=== PATIENT | male | born 1975 | race Caucasian/White ===

== ENCOUNTER 2020-02-29 03:32 | Inpatient (IN) ==
[2020-02-29] MEDS ORDERED: LIDOCAINE 1% 20 ML VIAL ONE (03:40)
[2020-02-29] MEDS ORDERED: MIDAZOLAM 2 MG/2 ML VIAL ONE (03:59)
[2020-02-29] MEDS ORDERED: HYDROmorphone 2 MG/1 ML VIAL ONE (03:59)
[2020-02-29] MEDS ORDERED: HEPARIN 5,000 UNIT/1 ML VIAL ONE (04:13)
[2020-02-29] MEDS ORDERED: TIROFIBAN 5,000 MCG/100 ML PREMIX IV ONE (04:20)
[2020-02-29] MEDS ORDERED: LABETALOL 20 MG/4 ML SYRINGE IV ONE (04:51)
[2020-02-29] MEDS ORDERED: MAGNESIUM SULF RIDER 4 GM in PREMIX 1 EACH IV PRN (04:52)
[2020-02-29] MEDS ORDERED: MAGNESIUM SULF RIDER 2 GM in PREMIX 1 EACH IV PRN (04:52)
[2020-02-29] MEDS ORDERED: TIROFIBAN 5,000 MCG/100 ML PREMIX IV SCH (05:00)
[2020-02-29 06:10] LABS: CKMB % 8.6 %
[2020-02-29] MEDS: carvediloL 3.125 MG TABLET PO SCH ×2 (06:10→08:31)
[2020-02-29] MEDS: ROSUVASTATIN 20 MG TABLET PO SCH ×2 (06:10→08:31)
[2020-02-29 06:11] LABS: Troponin I 12.9 NG/ML (0.00-0.045)
[2020-02-29 06:29] LABS: Basophils % 0.3 % (0.0-0.8); Eosinophils % 0.3 % (0.00-10.9); Hemoglobin 14.6 GM/DL (14.0-18.0); Immature Granulocytes % 0.4 %; Immature Granulocytes Absolute 0.04 #; Lymphocytes # 0.9 10*3/uL (1.4-4.0); Mean Corpuscular HGB Conc 33.2 GM/DL (32-36); Mean Corpuscular Volume 93.2 FL (87-102); Mean Platelet Volume 12.3 FL (9.6-12.0); Monocytes % 6.4 % (1.7-12.7); Neutrophils % 84.6 % (38.7-73.9); Platelet Count 157 T/CUMM (130-400); Red Blood Count 4.72 MC/CUMM (3.8-5.5); Red Cell Distribution Width 13.2 % (9.3-17.3); White Blood Count 10.8 T/CUMM (4-12)
[2020-02-29 06:34] LABS: Risk Ratio 5.29; VLDL CHOLESTEROL 32.8 MG/DL
[2020-02-29 07:16] LABS: Calcium 8.5 MG/DL (8.5-10.1); Osmolality,Calculated 275.7 MOS/KG (273-304)
[2020-02-29] MEDS: PRASUGREL 10 MG TABLET PO SCH (08:30)
[2020-02-29] MEDS: LOSARTAN 25 MG TABLET PO SCH ×2 (08:30→21:40)
[2020-02-29] MEDS: ASPIRIN CHEW 81 MG TABLET PO SCH (08:31)
[2020-02-29] MEDS: carvediloL 6.25 MG TABLET PO SCH ×2 (13:26→21:40)
[2020-02-29] MEDS: ENOXAPARIN 40 MG/0.4 ML SYRINGE SUBCUT SCH (13:26)
[2020-02-29 15:31] LABS: Barbiturates Screen,Urine Negative (Negative); Benzodiazepines Screen,Urine Positive (Negative); Cannabinoid Screen,Urine Positive (Negative); Opiate Screen,Urine Positive (Negative); Phencyclidine Screen,Urine Negative (Negative)
[2020-03-01 05:11] LABS: Basophils % 0.5 % (0.0-0.8); Eosinophils # 0.3 10*3/uL (0.0-0.87); Eosinophils % 3.2 % (0.00-10.9); Hematocrit 44.7 VOL% (42.0-52.0); Hemoglobin 14.8 GM/DL (14.0-18.0); Immature Granulocytes % 0.3 %; Immature Granulocytes Absolute 0.03 #; Lymphocytes # 1.3 10*3/uL (1.4-4.0); Lymphocytes % 15.3 % (21.2-54.2); Mean Corpuscular HGB Conc 33.1 GM/DL (32-36); Mean Corpuscular Volume 93.5 FL (87-102); Mean Platelet Volume 12.6 FL (9.6-12.0); Monocytes % 8.3 % (1.7-12.7); Neutrophils % 72.4 % (38.7-73.9); Platelet Count 144 T/CUMM (130-400); Red Blood Count 4.78 MC/CUMM (3.8-5.5); Red Cell Distribution Width 13.2 % (9.3-17.3); White Blood Count 8.6 T/CUMM (4-12)
[2020-03-01 05:36] LABS: Calcium 8.5 MG/DL (8.5-10.1); Osmolality,Calculated 272.7 MOS/KG (273-304)
[2020-03-01 05:37] LABS: CKMB % 7.5 %; Calcium 8.6 MG/DL (8.5-10.1); Osmolality,Calculated 274.5 MOS/KG (273-304)
[2020-03-01 05:43] LABS: Troponin I 12.2 NG/ML (0.00-0.045)
[2020-03-01] MEDS: PRASUGREL 10 MG TABLET PO SCH (08:44)
[2020-03-01] MEDS: ROSUVASTATIN 20 MG TABLET PO SCH (08:44)
[2020-03-01] MEDS: ASPIRIN CHEW 81 MG TABLET PO SCH (08:44)
[2020-03-01] MEDS: LOSARTAN 25 MG TABLET PO SCH (08:45)
[2020-03-01] MEDS: carvediloL 6.25 MG TABLET PO SCH (08:45)
[2020-03-01] MEDS ORDERED: carvediloL 12.5 MG TABLET PO SCH (09:01)
[2020-03-01] MEDS: ENOXAPARIN 40 MG/0.4 ML SYRINGE SUBCUT SCH (11:11)
== END 2020-03-01 14:40 | disposition home or self-care (01) | DRG 247 ==
LOC: N.TELES 04:04 → N.ICU 04:49
PROVIDERS: ADMIT Internal Medicine Cardiovascular Disease; ATTEND Internal Medicine Cardiovascular Disease
PROC: CLCCHCL (ICD-10-PCS; 2020-02-29 04:15)

== ENCOUNTER 2020-12-15 10:35 | Observation (INO) ==
[2020-12-15] MEDS ORDERED: ENOXAPARIN 100 MG/ML SYRINGE SUBCUT STA (11:08)
[2020-12-15] MEDS ORDERED: NITROGLYCERIN 2% OINT 1 INCH/GM PACK TOP STA (11:08)
[2020-12-15 11:17] LABS: Basophils % 0.4 % (0.0-0.8); Eosinophils # 0.3 10*3/uL (0.0-0.87); Eosinophils % 2.7 % (0.00-10.9); Hematocrit 44.8 VOL% (42.0-52.0); Hemoglobin 14.2 GM/DL (14.0-18.0); Immature Granulocytes % 0.8 %; Immature Granulocytes Absolute 0.08 #; Lymphocytes # 1.5 10*3/uL (1.4-4.0); Lymphocytes % 15.2 % (21.2-54.2); Mean Corpuscular HGB Conc 31.7 GM/DL (32-36); Mean Corpuscular Volume 95.3 FL (87-102); Mean Platelet Volume 11.6 FL (9.6-12.0); Monocytes % 10.1 % (1.7-12.7); Neutrophils % 70.8 % (38.7-73.9); Platelet Count 200 T/CUMM (130-400); Red Cell Distribution Width 14.3 % (9.3-17.3); White Blood Count 9.8 T/CUMM (4-12)
[2020-12-15 11:34] LABS: Albumin 3.6 G/DL (3.4-5.0); Bilirubin,Total 0.4 MG/DL (0.20-1.00); Calcium 8.2 MG/DL (8.5-10.1); Osmolality,Calculated 281.3 MOS/KG (273-304); Potassium 4.7 MMOL/L (3.5-5.1); Total Protein 6.9 G/DL (6.4-8.2)
[2020-12-15 12:02] LABS: Hypochromasia Slight
[2020-12-15] MEDS ORDERED: amLODIPine 5 MG TABLET PO STA (12:03)
[2020-12-15] MEDS ORDERED: ACETAMINOPHEN 325 MG TABLET PO PRN (13:08)
[2020-12-15] MEDS ORDERED: ONDANSETRON 4 MG/2 ML VIAL IV PRN (13:08)
[2020-12-15] MEDS ORDERED: ASPIRIN CHEW 81 MG TABLET PO STA (13:34)
[2020-12-15] MEDS ORDERED: POTASSIUM CHLORIDE RIDER 10 MEQ/100 ML PREMIX IV PRN (13:35)
[2020-12-15] MEDS ORDERED: MAGNESIUM SULF RIDER 2 GM/50 ML PREMIX IV PRN (13:35)
[2020-12-15] MEDS ORDERED: SODIUM CHLORIDE 0.9% 1,000 ML IV SCH (13:35)
[2020-12-15] MEDS ORDERED: diphenhydrAMINE CAP 25 MG CAPSULE PO ONE (13:35)
[2020-12-15] MEDS ORDERED: DIAZEPAM 5 MG TABLET PO ONE (13:35)
[2020-12-15] MEDS ORDERED: LIDOCAINE 1% 20 ML VIAL ONE (13:40)
[2020-12-15] MEDS ORDERED: MIDAZOLAM 2 MG/2 ML VIAL ONE (13:40)
[2020-12-15] MEDS ORDERED: fentaNYL 100 MCG/2 ML VIAL ONE (13:40)
[2020-12-15] MEDS ORDERED: HEPARIN 5,000 UNIT/1 ML VIAL ONE ×2 (14:38→15:08)
[2020-12-15] MEDS ORDERED: TIROFIBAN 5,000 MCG/100 ML PREMIX IV ONE (14:39)
[2020-12-15] MEDS ORDERED: TICAGRELOR 90 MG TABLET ONE (15:25)
[2020-12-15 18:37] LABS: Barbiturates Screen,Urine Negative (Negative); Benzodiazepines Screen,Urine Positive (Negative); Cannabinoid Screen,Urine Negative (Negative); Opiate Screen,Urine Negative (Negative); Phencyclidine Screen,Urine Negative (Negative)
[2020-12-15] MEDS: LOSARTAN 50 MG TABLET PO SCH (21:16)
[2020-12-15] MEDS: carvediloL 12.5 MG TABLET PO SCH (21:16)
[2020-12-15] MEDS: MORPHINE 2 MG/1 ML SYRINGE IV PRN (22:03)
[2020-12-15] MEDS ORDERED: ALUM/MAG/SIMETH/LIDO VISC 1:1 30 ML BOTTLE PO ONE (22:23)
[2020-12-16 06:03] LABS: Basophils % 0.4 % (0.0-0.8); Eosinophils # 0.2 10*3/uL (0.0-0.87); Hematocrit 41.5 VOL% (42.0-52.0); Hemoglobin 13.3 GM/DL (14.0-18.0); Immature Granulocytes % 0.7 %; Immature Granulocytes Absolute 0.06 #; Lymphocytes # 1.3 10*3/uL (1.4-4.0); Lymphocytes % 15.3 % (21.2-54.2); Mean Corpuscular Volume 94.3 FL (87-102); Mean Platelet Volume 12.1 FL (9.6-12.0); Neutrophils % 70.6 % (38.7-73.9); Platelet Count 168 T/CUMM (130-400); Red Cell Distribution Width 14.2 % (9.3-17.3); White Blood Count 8.5 T/CUMM (4-12)
[2020-12-16] MEDS: MORPHINE 2 MG/1 ML SYRINGE IV PRN (06:10)
[2020-12-16 06:16] LABS: Calcium 8.2 MG/DL (8.5-10.1); Osmolality,Calculated 268.1 MOS/KG (273-304); Potassium 3.9 MMOL/L (3.5-5.1); Risk Ratio 5.44; VLDL Cholesterol 105.6 MG/DL
[2020-12-16] MEDS: carvediloL 12.5 MG TABLET PO SCH (08:51)
[2020-12-16] MEDS: LOSARTAN 50 MG TABLET PO SCH (08:51)
[2020-12-16] MEDS ORDERED: amLODIPine 5 MG TABLET PO SCH (09:00)
[2020-12-16] MEDS ORDERED: ROSUVASTATIN 20 MG TABLET PO SCH (09:00)
[2020-12-16] MEDS ORDERED: CLOPIDOGREL 75 MG TABLET PO SCH (09:00)
[2020-12-16] MEDS ORDERED: ASPIRIN CHEW 81 MG TABLET PO SCH (09:00)
[2020-12-16] MEDS ORDERED: PANTOPRAZOLE 40 MG TABLET PO SCH (09:00)
[2020-12-16 13:12] VITALS: BP 104/71
[2020-12-16] MEDS: GABAPENTIN 100 MG CAPSULE PO SCH ×2 (14:47→15:53)
[2020-12-17] MEDS ORDERED: ROSUVASTATIN 20 MG TABLET PO SCH ×2 (09:00→21:00)
[2020-12-17] MEDS ORDERED: FENOFIBRATE 145 MG TABLET PO SCH (09:00)
== END 2020-12-16 15:30 | disposition home or self-care (01) ==
LOC: N.EDINP 10:35 → N.ED 10:35 → N.EDINP 15:48 → N.TELES 16:07
PROVIDERS: ADMIT Internal Medicine Cardiovascular Disease; ATTEND Internal Medicine Cardiovascular Disease
PROC: CLCCHCL (ICD-10-PCS; 2020-12-15 14:45)